=== PATIENT | female | born 1960 | race Caucasian/White ===

== ENCOUNTER 2020-08-30 07:40 | Day surgery (SDC) | payer OTHER, SELFPAY ==
[~2020-08-30] VITALS: Ht 162.6 cm; Wt 90.7 kg
[2020-08-30] MEDS ORDERED: MIDAZOLAM 2 MG/2 ML VIAL ONE (09:28)
[2020-08-30] MEDS ORDERED: fentaNYL citrate 0.05 MG/ML VIAL ONE (09:28)
[2020-08-30] MEDS ORDERED: LIDOCAINE 2% 100 MG/5 ML UJET TP ONE ×2 (09:29→10:15)
[2020-08-30] MEDS ORDERED: fentaNYL citrate 0.05 MG/ML VIAL IVP ONE (10:10)
== END 2020-08-30 10:30 | disposition home or self-care (01) ==
LOC: MDS 07:40 → MFCC 08:07 → MDS 10:30
PROVIDERS: ATTEND Internal Medicine Gastroenterology
DX: Z12.11 Encounter for screening for malignant neoplasm of colon (principal); Z86.010 Personal history of colon polyps; I10 Essential (primary) hypertension; E78.00 Pure hypercholesterolemia, unspecified; E03.9 Hypothyroidism, unspecified; Z20.828 Contact with and (suspected) exposure to other viral communicable diseases; Z79.899 Other long term (current) drug therapy
CPT/HCPCS: 45378; J3010; U0003; J2250

== ENCOUNTER 2023-02-18 12:27 | Day surgery (SDC) | payer OTHER ==
[~2023-02-18] VITALS: Ht 157.5 cm; Wt 90.7 kg
[2023-02-18] MEDS ORDERED: diphenhydrAMINE 50 MG/ML VIAL ONE (13:22)
[2023-02-18] MEDS ORDERED: MIDAZOLAM 5 MG/5 ML VIAL ONE (13:22)
[2023-02-18] MEDS ORDERED: fentaNYL citrate 0.05 MG/ML VIAL ONE (13:22)
[2023-02-18] MEDS ORDERED: fentaNYL citrate 0.05 MG/ML VIAL IVP ONE (14:45)
[2023-02-18] MEDS ORDERED: MIDAZOLAM 5 MG/5 ML VIAL IV ONE (14:45)
== END 2023-02-18 14:10 | disposition home or self-care (01) ==
LOC: MDS 12:27 → MMU 12:28 → MDS 14:10
PROVIDERS: ATTEND Internal Medicine Gastroenterology
DX: R10.13 Epigastric pain (principal); K21.00 Gastro-esophageal reflux disease with esophagitis, without bleeding; K29.70 Gastritis, unspecified, without bleeding; K25.9 Gastric ulcer, unspecified as acute or chronic, without hemorrhage or perforation; I10 Essential (primary) hypertension; E78.5 Hyperlipidemia, unspecified; K31.89 Other diseases of stomach and duodenum; E66.9 Obesity, unspecified; M06.9 Rheumatoid arthritis, unspecified; Z96.651 Presence of right artificial knee joint; M81.0 Age-related osteoporosis without current pathological fracture; Z79.899 Other long term (current) drug therapy; Z68.36 Body mass index [BMI] 36.0-36.9, adult
CPT/HCPCS: 43239; 88305; 88312; 88313; 88342; J2250; J3010; J1200

== ENCOUNTER 2023-04-19 09:01 | Day surgery (SDC) | payer OTHER ==
[~2023-04-19] VITALS: Ht 160 cm; Wt 90.7 kg
[2023-04-19] MEDS ORDERED: fentaNYL citrate 0.05 MG/ML VIAL ONE (10:09)
[2023-04-19] MEDS ORDERED: diphenhydrAMINE 50 MG/ML VIAL ONE (10:09)
[2023-04-19] MEDS ORDERED: MIDAZOLAM 2 MG/2 ML VIAL ONE (10:10)
[2023-04-19] MEDS ORDERED: fentaNYL citrate 0.05 MG/ML VIAL IVP ONE (11:10)
[2023-04-19] MEDS ORDERED: MIDAZOLAM 2 MG/2 ML VIAL IV ONE (11:10)
== END 2023-04-19 11:35 | disposition home or self-care (01) ==
LOC: MDS 09:01 → MMU 09:02 → MDS 11:35
PROVIDERS: ATTEND Internal Medicine Gastroenterology
DX: K25.7 Chronic gastric ulcer without hemorrhage or perforation (principal); K29.50 Unspecified chronic gastritis without bleeding; K21.9 Gastro-esophageal reflux disease without esophagitis; I10 Essential (primary) hypertension; E78.5 Hyperlipidemia, unspecified; E66.9 Obesity, unspecified; M85.80 Other specified disorders of bone density and structure, unspecified site; Z79.899 Other long term (current) drug therapy; Z68.35 Body mass index [BMI] 35.0-35.9, adult
CPT/HCPCS: 43239; J2250; J3010; 88305; 88312; 88313; 88342; J1200